=== PATIENT | female | born 1955 | race Caucasian/White ===

== ENCOUNTER 2019-06-20 12:42 | Outpatient (CLI) | payer MEDICARE, SELFPAY ==
--- NOTE | 2019-06-20 12:55 | XR_ITS ---
WS: [id number] CHEST 2 VIEWS HISTORY: EMPHYSEMA, UNSPECIFIED COMPARISON: 07/27/2016 Lungs: Mild pulmonary hyperexpansion. No pneumonia. Normal vasculature. No pleural effusion or pneumo thorax. Cardiac size: Normal. Mediastinum/Aorta: Mild atherosclerosis aorta. Bones: Thoracolumbar scoliosis. Prior cholecystectomy. XR/XR chest 2V* [id number] IMPRESSION: Mild chronic emphysema. No acute cardiopulmonary disease.
== END 2019-06-20 12:43 | disposition home or self-care (01) ==
LOC: RADWPI 12:53
PROVIDERS: Family Provider Family Medicine
DX: J43.9 Emphysema, unspecified (principal)
CPT/HCPCS: 71046

== ENCOUNTER 2019-06-26 07:43 | Outpatient (CLI) | payer MEDICARE, SELFPAY ==
[2019-06-26 07:59] VITALS: BMI 20.9
[2019-06-26 08:09] VITALS: BP 137/88; PULSE 62; RESP 18; TEMP 36.8; O2SAT 99
--- NOTE | 2019-06-26 09:03 | PC.NURSE ---
creatinine calculation 66.75 appropriate for infusion.
== END 2019-06-26 07:44 | disposition home or self-care (01) ==
LOC: GILAB 07:48
PROVIDERS: Family Provider Family Medicine
DX: M81.0 Age-related osteoporosis without current pathological fracture (principal)
CPT/HCPCS: 96365; J3489

== ENCOUNTER 2020-05-29 13:40 | Outpatient (CLI) | payer MEDICARE, SELFPAY ==
--- NOTE | 2020-05-29 13:48 | XR_ITS ---
WS: [id number] Exam: XR chest 2V* [id number] Date/Time of Exam: 05/29/2020 2:00 PM Reason For Exam: LUNG CANCER SCREENING Comparison 06/20/2019. The lungs are hyperinflated and clear. Cardiomediastinal structures appear normal. Several mild chron ic compression deformities involving the upper thoracic vertebra. No pleural effusions. XR/XR chest 2V* [id number] IMPRESSION: 1. Pulmonary hyperinflation which may indicate obstructive lung disease. 2. No acute process noted.
--- NOTE | 2020-05-29 13:48 | USCV_ITS ---
Renetta Sanders Age: 65 Gender: F : 1955 Exam Date: 05/29/2020 13:39 Ordering Phys: Ward Anthony Technologist: Jackie Mondragon Exam Location: [facility] [place]ication: SCREENING FOR AAA HISTORY: Screening Diameter (cm) AP x Transverse x Length Velocity (cm/s) Waveform Prox Aorta: 1.12 x 1.18 x 98.40 Mid Aorta: 1.27 x 1.66 x 67.80 Distal Aorta: 1.10 x 1.34 x 66.90 Right Iliac Prox: 0.56 x 0.92 x 87.60 Left Iliac Prox: 0.54 x 0.69 x 153.90 Stent Prox Landing x x Aneurysmal Sac Max x x Lt Lat Sac Dim Rt Lat Sac Dim Stent Dist Landing x x Right Iliac Stent x x Left Iliac Stent x x Right Renal Art Left Renal Art FINDINGS: CONCLUSIONS No evidence of abdominal aortic or bilateral iliac aneurysm. 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 Alexander Mendez MD (Electronically Signed) Final Date: 29 May 2020 16:40 S
== END 2020-05-29 13:41 | disposition home or self-care (01) ==
LOC: US 13:41
DX: Z00.00 Encounter for general adult medical examination without abnormal findings (principal); Z12.2 Encounter for screening for malignant neoplasm of respiratory organs
CPT/HCPCS: 71046; 76706

== ENCOUNTER 2021-01-08 13:56 | Outpatient (CLI) | payer MEDICARE, SELFPAY ==
--- NOTE | 2021-01-08 14:03 | MM_ITS ---
WS: [id number] BILATERAL DIGITAL SCREENING MAMMOGRAPHY WITH CAD CLINICAL INFORMATION: SCREENING HISTORY: Screening mammogram. No current complaints. COMPARISON: TECHNIQUE: Bilateral CC and MLO views. FINDINGS: Scattered fibroglandular densities bilaterally. No suspicious focal mass, asymmetry, calcifications, or architectural distortion. No evidence of malignancy. MM/[place] [id number] IMPRESSION: BI-RADS: 1-Negative FOLLOW UP: 1 Year Follow-up Recommend return to annual screening mammography.
--- NOTE | 2021-01-08 14:43 | XR_ITS ---
WS: [id number] DEXA (DUAL ENERGY X-RAY ABSORPTIOMETRY) Bone mineral density was performed using a [email or web address] machine. HISTORY: AGE-RELATED OSTEOPOROSIS WITHOUT CURRENT PATHOLOGICAL FRACTURE COMPARISON: 08/04/2017 Lumbar spine BMD (L1-L4): 1.140 g/cm2 T score: -0.3 Z score: 1.7 Total hip BMD: Left: 0.603 g/cm2. T score: -3.2 Z score: -1.6 Right: 0.539 g/cm2. T score: -3.7 Z score: -2.2 10 year probability of a major osteoporotic fracture is 33%. Compared to the prior study from 08/04/2017. Lumbar spine bone mineral density has increased by 0.2%. Bilateral hips bone mineral density has decrease by 3.7%. Bone mineral density of the lumbar spine is probably falsely elevated due to sclerosis. The bone mine ral density L1-L2 demonstrates at least osteopenia. XR/XR DEXA axial skeleton* [id number] IMPRESSION: OSTEOPOROSIS based upon the WHO classification for females. Significant decrease in bone mineral density within the hips since the prior st udy. Suspect bone mineral density in the lumbar spine is falsely elevated due to scl erosis and is at least osteopenic.
== END 2021-01-08 13:57 | disposition home or self-care (01) ==
LOC: RADSHAW 14:02
PROVIDERS: PCP Nurse Practitioner Family; Visit Provider Clinical Nurse Specialist Adult Health
DX: Z12.31 Encounter for screening mammogram for malignant neoplasm of breast (principal); M81.0 Age-related osteoporosis without current pathological fracture
CPT/HCPCS: 77067; 77080

== ENCOUNTER → 2021-10-07 08:53 | Day surgery (SDC) | payer MEDICARE, SELFPAY ==
[2021-10-07 09:22] VITALS: BP 119/61; PULSE 57; RESP 18; TEMP 35.8; O2SAT 99
[2021-10-07 09:56] LABS: Blood Urea Nitrogen 11 mg/dL (8-23); Calcium 9.3 mg/dL (8.5-10.5); Glomerular Filtration Rate 83.5 mL/min (90-130)
--- NOTE | 2021-10-07 10:08 | PC.NURSE ---
Creatinine clearance noted at 67. Reclast 5 mg IVPB given as ordered.
== END ==
PROVIDERS: PCP Nurse Practitioner Family; Visit Provider Nurse Practitioner Family
DX: M81.0 Age-related osteoporosis without current pathological fracture (principal)
CPT/HCPCS: 36415; 82310; 82565; 84520; 96365; J3489

== ENCOUNTER → 2022-01-29 13:14 | Outpatient (BNVA) | payer MEDICARE, SELFPAY | PROVIDERS: PCP Nurse Practitioner Family; Visit Provider Family Medicine | DX: E78.00 Pure hypercholesterolemia, unspecified (principal); Z00.00 Encounter for general adult medical examination without abnormal findings; Z76.89 Persons encountering health services in other specified circumstances; I70.90 Unspecified atherosclerosis; M81.0 Age-related osteoporosis without current pathological fracture | CPT/HCPCS: 80053; 80061; 85025 ==

== ENCOUNTER 2022-02-05 11:35 | Outpatient (CLI) | payer MEDICARE, SELFPAY ==
--- NOTE | 2022-02-05 11:56 | MM_ITS ---
WS: [id number] BILATERAL SCREENING DIGITAL TOMOSYNTHESIS MAMMOGRAM WITH CAD HISTORY: breast cancer screening COMPARISON: 01/08/2021 and 08/04/2017 Bilateral CC and MLO views with tomosynthesis and synthetic mammography submitted. Computer aided det ection analyzed. Breast composition: There are scattered areas of fibroglandular density. No suspicious masses, microc alcifications or architectural distortion. MM/[place] [id number] IMPRESSION: BI-RADS: 1-Negative FOLLOW UP: 1 Year Follow-up
== END 2022-02-05 11:36 | disposition home or self-care (01) ==
LOC: RAD 11:37
PROVIDERS: PCP Family Medicine; Visit Provider Family Medicine
DX: Z12.31 Encounter for screening mammogram for malignant neoplasm of breast (principal)
CPT/HCPCS: 77063; 77067

== ENCOUNTER 2022-02-19 13:14 | Outpatient (CLI) | payer MEDICARE, SELFPAY ==
--- NOTE | 2022-02-19 13:45 | XR_ITS ---
WS: [id number] 3 views of the left third finger, 02/19/2022 Clinical Data: painful, palpable lump of long finger of left hand Comparison: None. Findings: No fractures or dislocations are seen. The soft tissues are normal. The joint spaces are not remarkab le. A bone spur is seen. There is a small soft tissue calcification adjacent to the distal radial side of the third finger proximal phalanx. XR/XR finger LT min 2V [id number] Impression: Soft tissue calcification in distal radial subcutaneous tissue of the left thir d finger proximal phalanx.
== END 2022-02-19 13:15 | disposition home or self-care (01) ==
LOC: RAD 13:17
PROVIDERS: PCP Family Medicine; Visit Provider Family Medicine
DX: L98.9 Disorder of the skin and subcutaneous tissue, unspecified (principal)
CPT/HCPCS: 73140

== ENCOUNTER → 2022-03-04 10:36 | Outpatient (BNVA) | payer MEDICARE, SELFPAY | PROVIDERS: PCP Family Medicine; Referring Provider Family Medicine; Visit Provider Orthopaedic Surgery | DX: R22.32 Localized swelling, mass and lump, left upper limb (principal) | CPT/HCPCS: 99203 ==

== ENCOUNTER 2022-07-13 14:33 | Outpatient (CLI) | payer MEDICARE, SELFPAY ==
--- NOTE | 2022-07-13 14:49 | XRR_ITS ---
PROCEDURE INFORMATION: Exam: XR Bilateral Hips Exam date and time: 07/13/2022 2:53 PM Age: 67 years old Clinical indication: Pain and injury or trauma; Fall; Blunt trauma (contusions or hematomas); Bilateral; Hip pain; Injury date: 3 weeks ago; Prior surgery; Surgery type: Hystero; Additional info: Bilateral hip pain after trauma TECHNIQUE: Imaging protocol: Radiologic exam of the bilateral hips. Views: 2 views of hips with pelvis when performed. COMPARISON: CT abdomen pelvis wo/w [id number] 05/05/2016 10:38 AM FINDINGS: Bones/joints: Unremarkable. No acute fracture. Soft tissues: Unremarkable. XR/XR hip BI m 5V wo/w pel* [id number] IMPRESSION: No acute findings.
== END 2022-07-13 14:34 | disposition home or self-care (01) ==
LOC: RAD 14:40
PROVIDERS: PCP Family Medicine; Visit Provider Family Medicine
DX: M25.551 Pain in right hip (principal); M25.552 Pain in left hip
CPT/HCPCS: 73523

== ENCOUNTER 2022-07-24 10:58 | Outpatient (CLI) | payer MEDICARE, SELFPAY ==
--- NOTE | 2022-07-24 11:21 | XR_ITS ---
WS: [id number] LUMBAR SPINE: 3 VIEWS TECHNIQUE: AP, lateral and L5-S1 spot. HISTORY: radicular pain COMPARISON: 12/03/2015 L5 anterolisthesis by 6 mm. Very slight progression since the prior study of 07/20/2017. Disc spaces a re moderately narrowed throughout. No acute lumbar spine fracture. Facet joint arthritis is moderate from L3-4 to L5-S1. S-shaped scolio sis and curvature the lumbar spine. Asymmetric disc space narrowing at L3-4 and L4-5. Mild narrowing and sclerosis of the SI joints. Prior cholecystectomy. XR/XR lumbar spine 2-3V* [id number] IMPRESSION: 1. Grade 1 spondylolisthesis of L5 with minimal progression since 2018. 2. S-shaped scoliosis lumbar spine. 3. Asymmetric disc space narrowing at L3-4 and L4-5 with facet joint arthritis . Facet joint arthritis most significant at the L5-S1 level.
== END 2022-07-24 10:59 | disposition home or self-care (01) ==
LOC: RAD CLINIC 11:06 → RAD 11:34
PROVIDERS: PCP Family Medicine; Visit Provider Family Medicine
DX: M54.17 Radiculopathy, lumbosacral region (principal); M43.16 Spondylolisthesis, lumbar region; M41.86 Other forms of scoliosis, lumbar region; M47.816 Spondylosis without myelopathy or radiculopathy, lumbar region; M47.817 Spondylosis without myelopathy or radiculopathy, lumbosacral region
CPT/HCPCS: 72100

== ENCOUNTER 2022-10-08 14:10 | Outpatient (CLI) | payer MEDICARE, SELFPAY ==
--- NOTE | 2022-10-08 14:30 | MR_ITS ---
WS: [id number] MRI LUMBAR SPINE NONCONTRAST HISTORY: low back pain after fall, not improving w/ conservative tx COMPARISON: Lumbar spine radiograph 07/24/2019. TECHNIQUE: Sagittal and axial multisequence imaging is submitted. Moderate increase in thoracic kyphosis. Disc spaces are narrowed and desiccated throughout the cervic al and thoracic spine. Mild cervical stenosis at C3-4. Marked LEFT degenerative scoliosis lumbar spine. No fractures or marrow edema. Disc spaces are all narrowed with desiccation. 5 mm anterolisthesis of L5. Conus terminates normally at on all sequences there is increased T2 signal in the distal cord at the T12-L1 level extending over a length of 3.0 cm. Diameter of 0.2 cm. Most consistent with a syrinx. There is edema within several sacral segments including S2, S3 and probably S4. This is bilateral as seen only on the sagittal images. Axial imaging through the sacrum is not obtained. T12-L1: Mild bilateral foraminal stenosis, LEFT greater than RIGHT and asymmetric disc space narrowin g. L1-L2: Mild deformity of thecal sac due to scoliosis. Mild facet arthritis. Mild LEFT foraminal steno sis. L2-L3: Increasing deformity of thecal sac with encroachment upon the subarticular recesses, LEFT grea ter than RIGHT. Severe bilateral facet joint arthritis with mild bilateral foraminal stenosis and sub articular recess stenosis. L3-L4: Diffuse annular disc bulging with mild osteophytic ridging. Severe facet joint arthropathy enc roaching upon the thecal sac and subarticular recesses. RIGHT facet disease encroaches into the RIGHT lateral thecal sac and foramina. Moderate central, RIGHT subarticular recess and foraminal stenosis. Mild LEFT subarticular recess and foraminal stenosis. L4-L5: Deformity thecal sac due to the scoliosis. Annular disc bulging and osteophytic ridging. Moder ate facet arthritis. Moderate central with bilateral subarticular recess stenosis and RIGHT foraminal stenosis. Mild LEFT foraminal stenosis. L5-S1: Marked annular disc bulging encroaching upon the thecal sac. There is significant contact on t he S1 nerve roots with moderate to severe central stenosis. Severe facet arthropathy. Fluid in the fa cet joints and moderate bilateral foraminal stenosis. Mild dilatation of the RIGHT renal pelvis. The ureter is not dilated. No significant change since 05/05/2016. MR/MR lumbar spine wo con* [id number] IMPRESSION: 1. Severe LEFT rotoscoliosis lumbar spine. 2. No acute lumbar spine fractures. 3. Multilevel facet joint arthritis and stenoses. 4. Most significant stenosis at L5-S1. Moderate to severe central stenosis wit h disc encroachment and contact on the S1 nerve roots. Moderate bilateral aust[place] inal stenosis. 5. Severe facet joint arthropathy at L3-4. Moderate central, RIGHT subarticula r recess and foraminal stenosis at L3-4 with only mild LEFT subarticular recess and foraminal stenosis. 6. Facet arthritis and mild foraminal stenosis at T12-L1 and L1-2. 7. Severe bilateral facet joint arthritis with mild foraminal and subarticular recess stenosis at L2-3. 8. Sacral edema involving S2, S3 and probably S4. Bilateral sacral edema. Susp ect sacral insufficiency fracture. 9. Short syrinx in the distal thoracic cord at the T12-L1 level extends over l ength of 3.0 cm with a diameter of 0.2 cm.
== END 2022-10-08 14:11 | disposition home or self-care (01) ==
LOC: RAD 14:13
PROVIDERS: PCP Family Medicine; Visit Provider Family Medicine
DX: M54.31 Sciatica, right side (principal); M47.817 Spondylosis without myelopathy or radiculopathy, lumbosacral region; M48.07 Spinal stenosis, lumbosacral region; M41.86 Other forms of scoliosis, lumbar region
CPT/HCPCS: 72148

== ENCOUNTER → 2022-10-13 14:42 | Outpatient (BNVA) | payer MEDICARE, SELFPAY | PROVIDERS: PCP Family Medicine; Referring Provider Family Medicine; Visit Provider Orthopaedic Surgery | DX: M48.061 Spinal stenosis, lumbar region without neurogenic claudication (principal) | CPT/HCPCS: 72110; 99204 ==

== ENCOUNTER → 2022-10-14 10:33 | Day surgery (SDC) | payer MEDICARE, SELFPAY ==
[2022-10-14 10:51] VITALS: BP 146/69; PULSE 60; RESP 18; TEMP 36.3; O2SAT 100
[2022-10-14 11:15] LABS: Blood Urea Nitrogen 10 mg/dL (8-23); Calcium 8.7 mg/dL (8.5-10.5); Glomerular Filtration Rate 83.2 mL/min (90-130)
--- NOTE | 2022-10-14 11:25 | PC.NURSE ---
Pt to GI infusons for Reclast infusion. Labs performed prior to infusion and noted Calcium at 8.7 and Creatinine Clearance at 66. Reclast infusion given as ordered.
== END ==
PROVIDERS: PCP Family Medicine; Visit Provider Family Medicine
DX: M81.0 Age-related osteoporosis without current pathological fracture (principal); Z79.899 Other long term (current) drug therapy
CPT/HCPCS: 36415; 82310; 82565; 84520; 96365; J3489

== ENCOUNTER → 2022-10-29 10:39 | Outpatient (BNVA) | payer MEDICARE, SELFPAY | PROVIDERS: PCP Family Medicine; Visit Provider Family Medicine | DX: E78.00 Pure hypercholesterolemia, unspecified (principal); Z78.0 Asymptomatic menopausal state; M81.0 Age-related osteoporosis without current pathological fracture; M48.061 Spinal stenosis, lumbar region without neurogenic claudication | CPT/HCPCS: 80048; 80061 ==

== ENCOUNTER → 2022-11-12 09:28 | Outpatient (BNVA) | payer MEDICARE, SELFPAY | PROVIDERS: PCP Family Medicine; Visit Provider Anesthesiology Pain Medicine | DX: M54.42 Lumbago with sciatica, left side (principal); M54.41 Lumbago with sciatica, right side; M48.061 Spinal stenosis, lumbar region without neurogenic claudication | CPT/HCPCS: 99204 ==

== ENCOUNTER → 2022-12-08 14:17 | Outpatient (BNVA) | payer MEDICARE, SELFPAY | PROVIDERS: PCP Family Medicine; Visit Provider Anesthesiology Pain Medicine | DX: M47.816 Spondylosis without myelopathy or radiculopathy, lumbar region (principal); M54.42 Lumbago with sciatica, left side; M54.41 Lumbago with sciatica, right side | CPT/HCPCS: 64493; 64494; 64495; J3490 ==

== ENCOUNTER → 2022-12-21 09:20 | Outpatient (BNVA) | payer MEDICARE, SELFPAY | PROVIDERS: PCP Family Medicine; Visit Provider Anesthesiology Pain Medicine | DX: M48.061 Spinal stenosis, lumbar region without neurogenic claudication (principal); M54.42 Lumbago with sciatica, left side; M54.41 Lumbago with sciatica, right side | CPT/HCPCS: 99214 ==

== ENCOUNTER 2023-03-03 14:46 | Outpatient (CLI) | payer MEDICARE, SELFPAY ==
--- NOTE | 2023-03-03 15:00 | MM_ITS ---
WS: [email or web address] BILATERAL 3D TOMOSYNTHESIS DIGITAL SCREENING MAMMOGRAPHY WITH CAD CLINICAL INFORMATION: breast cancer screening HISTORY: Screening mammogram. No current complaints. COMPARISON: 2021 TECHNIQUE: Bilateral CC and MLO views. FINDINGS: Scattered fibroglandular densities bilaterally. No suspicious focal mass, asymmetry, calcifications, or architectural distortion. No evidence of malignancy. Vascular calcification IMPRESSION: MM/[place] [id number] BI-RADS: 2-Benign FOLLOW UP: 1 Year Follow-up Recommend return to annual screening mammography.
== END 2023-03-03 14:47 | disposition home or self-care (01) ==
LOC: RAD 14:48
PROVIDERS: PCP Family Medicine; Visit Provider Family Medicine
DX: Z12.31 Encounter for screening mammogram for malignant neoplasm of breast
CPT/HCPCS: 77063; 77067

== ENCOUNTER → 2023-03-23 09:07 | Outpatient (BNVA) | payer MEDICARE, SELFPAY | PROVIDERS: PCP Family Medicine; Visit Provider Anesthesiology Pain Medicine | DX: M54.42 Lumbago with sciatica, left side (principal); M54.41 Lumbago with sciatica, right side; M48.061 Spinal stenosis, lumbar region without neurogenic claudication | CPT/HCPCS: 99214 ==

== ENCOUNTER → 2023-05-03 10:28 | Outpatient (BNVA) | payer MEDICARE, SELFPAY | PROVIDERS: PCP Family Medicine; Visit Provider Family Medicine | DX: R00.2 Palpitations (principal); Z79.899 Other long term (current) drug therapy | CPT/HCPCS: 80053; 83735; 84443; 85025 ==

== ENCOUNTER → 2023-07-08 07:55 | Outpatient (BNVA) | payer MEDICARE, SELFPAY | PROVIDERS: PCP Family Medicine; Visit Provider Anesthesiology Pain Medicine | DX: M54.42 Lumbago with sciatica, left side (principal); M54.41 Lumbago with sciatica, right side; M48.061 Spinal stenosis, lumbar region without neurogenic claudication | CPT/HCPCS: 99214 ==

== ENCOUNTER 2023-07-13 14:06 | Outpatient (CLI) | payer MEDICARE, SELFPAY ==
--- NOTE | 2023-07-13 14:11 | XR_ITS ---
WS: [email or web address] SCREENING DEXA SCAN [employer] CLINICAL INFORMATION: f/u osteoporosis, reclast tx COMPARISON: 2020 FINDINGS: Lumbar scoliosis. The L1-L4 bone mineral density measures 1.222 g/cm2. This corresponds to a T score score of 0.4 and Z score of 2.3. Left femoral neck bone mineral density measures 0.628 g/cm2. This corresponds to a T score of -3.0 an d Z score of -1.4. Right femoral neck bone mineral density measures 0.557 g/cm2. This corresponds to a T score -3.6of an d Z score of -1.9. Mean femoral neck bone mineral density measures 0.592 g/cm2. This corresponds to a T score of -3.3 an d Z score of -1.7. IMPRESSION: Normal bone mineralization lumbar spine. Osteoporosis femoral necks. Patient's FRAX calculated 10 year probability for major osteoporotic fracture is 35.5% and osteoporot ic hip fracture is 16.1%. Bone marrow density lumbar spine increased 7.2% Bone mineral density femoral necks increased 3.7%
== END 2023-07-13 14:07 | disposition home or self-care (01) ==
LOC: RAD 14:06
PROVIDERS: PCP Family Medicine; Visit Provider Family Medicine
DX: Z13.820 Encounter for screening for osteoporosis (principal); Z78.0 Asymptomatic menopausal state; M81.0 Age-related osteoporosis without current pathological fracture; Z79.899 Other long term (current) drug therapy
CPT/HCPCS: 77080

== ENCOUNTER → 2023-12-25 15:16 | Outpatient (BNVA) | payer MEDICARE, SELFPAY | PROVIDERS: PCP Family Medicine; Visit Provider Emergency Medicine | DX: R39.9 Unspecified symptoms and signs involving the genitourinary system (principal) | CPT/HCPCS: 81000; 87077; 87086; 87184 ==

== ENCOUNTER → 2024-05-02 13:32 | Outpatient (BNVA) | payer MEDICARE, SELFPAY | PROVIDERS: PCP Family Medicine; Visit Provider Family Medicine | DX: Z79.899 Other long term (current) drug therapy (principal) | CPT/HCPCS: 80053 ==

== ENCOUNTER 2024-05-10 12:49 | Outpatient (CLI) | payer MEDICARE, SELFPAY ==
--- NOTE | 2024-05-10 13:30 | MM_ITS ---
WS: [id number] VIEWS: MLO and CC views both breasts. 3D digital tomosynthesis is also included in this exam. Comparison made with prior exam of 07/06/2008, 08/04/2017, 12/29/2011, 02/01/2013, 08/14/2014, 06/29/2007, 12/29, 02/05/2022, 03/03/2023.. Findings: The breasts are heterogeneously dense, which may obscure small masses. No mass, tumor calcification or architectural distortion identified. MM/MM scr BI tomosynthesis [id number] Impression: BI-RADS: 2 - Benign FOLLOW-UP: 1 Year Follow-up This mammogram was also analyzed by the Computer Aided Detection System R2 Imag e Signing Agent.
== END 2024-05-10 12:50 | disposition home or self-care (01) ==
LOC: RAD 12:49
PROVIDERS: PCP Family Medicine; Visit Provider Family Medicine
DX: Z12.31 Encounter for screening mammogram for malignant neoplasm of breast (principal); R92.333 Mammographic heterogeneous density, bilateral breasts
CPT/HCPCS: 77063; 77067

== ENCOUNTER → 2024-05-28 14:08 | Outpatient (BNVA) | payer MEDICARE, SELFPAY | PROVIDERS: PCP Family Medicine; Visit Provider Emergency Medicine | DX: R39.9 Unspecified symptoms and signs involving the genitourinary system (principal) | CPT/HCPCS: 81000; 87086 ==

== ENCOUNTER → 2024-08-29 09:39 | Outpatient (BNVA) | payer MEDICARE, SELFPAY | PROVIDERS: PCP Family Medicine; Referring Provider Family Medicine; Visit Provider Anesthesiology Pain Medicine | DX: M48.061 Spinal stenosis, lumbar region without neurogenic claudication (principal); M54.32 Sciatica, left side; M54.31 Sciatica, right side | CPT/HCPCS: 99214 ==

== ENCOUNTER → 2024-09-06 08:41 | Outpatient (BNVA) | payer MEDICARE, SELFPAY | PROVIDERS: PCP Family Medicine; Visit Provider Anesthesiology Pain Medicine | DX: M54.16 Radiculopathy, lumbar region (principal); M54.42 Lumbago with sciatica, left side; M54.41 Lumbago with sciatica, right side; Z87.891 Personal history of nicotine dependence | CPT/HCPCS: 64483; 64484; J1100; J3490; J9999 ==

== ENCOUNTER → 2024-09-19 08:19 | Outpatient (BNVA) | payer MEDICARE, SELFPAY | PROVIDERS: PCP Family Medicine; Visit Provider Anesthesiology Pain Medicine | DX: M54.42 Lumbago with sciatica, left side (principal); M54.41 Lumbago with sciatica, right side; M48.061 Spinal stenosis, lumbar region without neurogenic claudication | CPT/HCPCS: 99213 ==

== ENCOUNTER → 2024-11-07 13:40 | Outpatient (BNVA) | payer MEDICARE, SELFPAY | PROVIDERS: PCP Family Medicine; Visit Provider Family Medicine | DX: Z79.899 Other long term (current) drug therapy (principal) | CPT/HCPCS: 80048 ==

== ENCOUNTER 2024-11-13 15:21 | Outpatient (CLI) | payer MEDICARE, SELFPAY ==
--- NOTE | 2024-11-13 16:00 | MR_ITS ---
WS: [id number] MRI CERVICAL SPINE NONCONTRAST HISTORY: chronic neck pain, now w/ Lt radiculopathy COMPARISON: None available. Technique: Multiplanar, multisequence noncontrast imaging of the cervical spine. Head is held in forward flexion this is predominantly due to the upper thoracic kyphosis. Mild increase in the upper cervical lordosis. Focal narrowing of the cervical cord centered at C3-4. On the sagittal T2 images there is no increased signal within the cord. On the STIR sequence there may be slight haziness and increased signal within the cord suggesting early myelomalacia. Craniocervical junction, C1 and C2 relationship, odontoid process and soft tissues are normal. C2-C3: Annular disc bulging with a central disc protrusion. Mild bilateral facet arthritis. Fluid in the LEFT facet joint. Mild central and foraminal stenosis. C3-C4: Diffuse annular disc bulging with osteophytic ridging. Bilateral foraminal disc osteophyte protrusions, RIGHT slightly greater than LEFT. There is a significant amount of edema in the LEFT facets extending through the facet joints and paraspinal. Severe central and bilateral foraminal stenosis. C4-C5: Mild diffuse annular disc bulging. Bilateral foraminal disc osteophytes. Mild central with moderate bilateral foraminal stenosis. There is edema in the LEFT facets. C5-C6: Mild annular disc bulging effacing ventral CSF. Moderate size disc osteophyte extending into the RIGHT foramen smaller disc osteophyte on the LEFT. Greater RIGHT foraminal stenosis with contact on the nerve roots. Mild bilateral facet arthritis. C6-C7: Mild annular disc bulging with osteophytic ridging and bilateral foraminal osteophytes. Mild central and bilateral foraminal stenosis. C7-T1: Mild annular disc bulging with mild osteophytic ridging. Small bilateral foraminal osteophytes. Mild bilateral foraminal stenosis. No paravertebral mass. MR/MR cervical spin wo con* [id number] IMPRESSION: 1. Moderate cervical spondylosis. 2. C3-4: Diffuse annular disc bulging with osteophytic ridging and facet arthr itis. Severe central and bilateral foraminal stenosis. 3. Additional marrow edema in the LEFT C3 and C4 articular facets and facet shadia ints with fluid and edema in the soft tissues consistent with acute synovitis. There may be some instability at this level. 4. C4-5: Mild central with moderate bilateral foraminal stenosis. 5. C5-6: Moderate RIGHT foraminal disc osteophyte contacting the nerve roots. Smaller disc osteophyte on the LEFT. 6. C2-3 and C6-7: Mild central and bilateral foraminal stenosis. 7. Mild bilateral foraminal stenosis at C7-T1. 8. 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
== END 2024-11-13 15:22 | disposition home or self-care (01) ==
LOC: RAD 15:22
PROVIDERS: PCP Family Medicine; Visit Provider Family Medicine
DX: M47.22 Other spondylosis with radiculopathy, cervical region (principal); M48.02 Spinal stenosis, cervical region; M25.78 Osteophyte, vertebrae
CPT/HCPCS: 72141

== ENCOUNTER → 2024-11-20 09:49 | Outpatient (BNVA) | payer MEDICARE, SELFPAY | PROVIDERS: PCP Family Medicine; Visit Provider Student in an Organized Health Care Education/Training Program | DX: R19.5 Other fecal abnormalities (principal) | CPT/HCPCS: 99204 ==

== ENCOUNTER → 2024-11-30 08:02 | Outpatient (BNVA) | payer MEDICARE, SELFPAY | PROVIDERS: PCP Family Medicine; Visit Provider Orthopaedic Surgery | DX: M48.02 Spinal stenosis, cervical region (principal); M54.2 Cervicalgia | CPT/HCPCS: 72050; 99213 ==

== ENCOUNTER → 2024-12-06 10:14 | Outpatient (BNVA) | payer MEDICARE, SELFPAY | PROVIDERS: PCP Family Medicine; Visit Provider Family Medicine | DX: R05.8 Other specified cough (principal); R06.02 Shortness of breath | CPT/HCPCS: 71046 ==

== ENCOUNTER 2025-01-17 11:18 | Outpatient (RCR) | payer MEDICARE, SELFPAY | END 2025-01-28 23:59 | disposition home or self-care (01) | LOC: SPT 11:18 | PROVIDERS: PCP Family Medicine; Visit Provider Orthopaedic Surgery | DX: M54.2 Cervicalgia (principal) | CPT/HCPCS: 97161 ==

== ENCOUNTER 2025-01-29 05:00 | Outpatient (RCR) | payer MEDICARE, SELFPAY | END 2025-02-19 09:52 | disposition home or self-care (01) | LOC: SPT 05:00 | PROVIDERS: PCP Family Medicine; Visit Provider Orthopaedic Surgery | DX: M54.2 Cervicalgia (principal) | CPT/HCPCS: 97110 ==

== ENCOUNTER → 2025-02-23 15:14 | Outpatient (BNVA) | payer MEDICARE, SELFPAY | PROVIDERS: PCP Family Medicine | DX: R39.9 Unspecified symptoms and signs involving the genitourinary system (principal); R30.0 Dysuria | CPT/HCPCS: 81000; 87086 ==

== ENCOUNTER → 2025-03-01 12:25 | Outpatient (BNVA) | payer MEDICARE, SELFPAY | PROVIDERS: PCP Family Medicine; Visit Provider Orthopaedic Surgery | DX: M48.02 Spinal stenosis, cervical region (principal) | CPT/HCPCS: 99214 ==

== ENCOUNTER → 2025-03-19 07:44 | Outpatient (BNVA) | payer MEDICARE, SELFPAY | PROVIDERS: PCP Family Medicine; Visit Provider Anesthesiology Pain Medicine | DX: M48.061 Spinal stenosis, lumbar region without neurogenic claudication (principal); M54.32 Sciatica, left side; M54.31 Sciatica, right side | CPT/HCPCS: 99214 ==

== ENCOUNTER → 2025-04-03 14:36 | Outpatient (BNVA) | payer MEDICARE, SELFPAY | PROVIDERS: PCP Family Medicine; Visit Provider Anesthesiology Pain Medicine | DX: M79.18 Myalgia, other site (principal); M48.061 Spinal stenosis, lumbar region without neurogenic claudication; M54.2 Cervicalgia; M54.32 Sciatica, left side; M54.31 Sciatica, right side | CPT/HCPCS: 20553; 99214; J1010; J3490 ==

== ENCOUNTER → 2025-05-15 10:45 | Outpatient (BNVA) | payer MEDICARE, SELFPAY | PROVIDERS: PCP Family Medicine; Visit Provider Family Medicine | DX: Z00.00 Encounter for general adult medical examination without abnormal findings (principal); I70.90 Unspecified atherosclerosis; E78.00 Pure hypercholesterolemia, unspecified | CPT/HCPCS: 80053; 80061; 85025 ==